=== PATIENT | male | born 1995 | race American Indian/Alaskan Native ===

== ENCOUNTER 2017-09-06 20:04 | Emergency (ER) | payer SELFPAY ==
--- NOTE | 2017-09-06 21:17 | Emergency Department Report ---
HPI - General Chief Complaint: Overdose Time Seen by Provider: 09/06/17 20:57 - HPI HPI: This is a 22-year-old after [place] male who presents to the emergency department by EMS from home with complaint of a suicide attempt by taking antifungal liquid made 4 canines. He says it was only a small amount. Currently he says he feels better but he had some nausea and vomiting earlier. He says that he was in a "bad place" earlier today and was having some depression when he took this medication in attempt to harm himself. He denies any psychiatric history. He does not have a primary care doctor. He denies any illicit drug use or alcohol abuse. No recent travel or sick contacts at home. He did not receive anything for her symptoms prior to presentation. ED Past Medical Hx - Past Medical History Additional medical history: denies - Surgical History Additional Surgical History: denies - Social History Smoking Status: Heavy Tobacco Smoker - Medications Home Medications: Home Medications Medication Instructions Recorded Confirmed Last Taken Type No Known Home Medications [No 09/06/17 09/06/17 Unknown History Reported Home Medications] ED Review of Systems ROS: Stated complaint: SUICIDAL/MH EVAL/EMESIS Other details as noted in HPI Comment: All other systems reviewed and negative Constitutional: denies: chills, fever Eyes: denies: eye pain, eye discharge, vision change ENT: denies: ear pain, throat pain Respiratory: denies: cough, shortness of breath, wheezing Cardiovascular: denies: chest pain, palpitations Gastrointestinal: nausea, vomiting Genitourinary: denies: urgency, dysuria Musculoskeletal: denies: back pain, joint swelling, arthralgia Skin: denies: rash, lesions Neurological: denies: headache, weakness, paresthesias Psychiatric: suicidal thoughts. denies: auditory hallucinations, visual hallucinations, homicidal thoughts Physical Exam - Physical Exam Vital Signs: Vital Signs 09/06/17 20:40 Temperature 98.5 F Pulse Rate 90 Blood Pressure 130/82 O2 Sat by Pulse 99 Oximetry Physical Exam: GENERAL: The patient is well-developed well-nourished. HENT: Normocephalic. Atraumatic. Patient has moist mucous membranes. EYES: Extraocular motions are intact. Pupils equal reactive to light bilaterally. NECK: Supple. Trachea is midline. CHEST/LUNGS: Clear to auscultation. There is no respiratory distress noted. HEART/CARDIOVASCULAR: Regular. There is no tachycardia. There is no gallop rub or murmur. ABDOMEN: Abdomen is soft, nontender. Patient has normal bowel sounds. There is no abdominal distention. SKIN: Skin is warm and dry. NEURO: The patient is awake, alert, and oriented. The patient is cooperative. The patient has no focal neurologic deficits. The patient has normal speech and gait. Cranial nerves II through XII grossly intact. MUSCULOSKELETAL: There is no tenderness or deformity. There is no limitation range of motion. There is no evidence of acute injury. ED Course Vital Signs 09/06/17 20:40 Temperature 98.5 F Pulse Rate 90 Blood Pressure 130/82 O2 Sat by Pulse 99 Oximetry - Consultations Consultation #1: Poison control was contacted at 8:00 PM. They suggest supportive care for the canine antifungal. They recommend the normal overdose labs, EKG and workup. 09/06/17 22:35 ED Medical Decision Making - Lab Data Result diagrams: 09/06/17 21:19 09/06/17 21:19 - EKG Data -: EKG Interpreted by Nm EKG shows normal: sinus rhythm, axis, intervals, QRS complexes, ST-T waves Rate: normal - EKG Data When compared to previous EKG there are: previous EKG unavailable Interpretation: normal EKG - Medical Decision Making This is a 22-year-old male presents after he attempted to harm himself by drinking liquids canine antifungal medication. He had some nausea and vomiting when he first came in but since then he has been calm and appropriate. However secondary to the fact that he is trying to harm himself, he has been made a 1013. We spoke to poison control recommended a 4 hour observation and supportive care. It has been over 4 hours and the patient has not shown any signs of distress. His vital signs and stable throughout his ED course. We do not yet have a urinalysis or urine drug screen but otherwise his blood lab results have been unremarkable. He appears medically cleared for psychiatric placement. - Differential Diagnosis depression, substance abuse, bipolar disorder Critical Care Time: No Critical care attestation.: If time is entered above; I have spent that time in minutes in the direct care of this critically ill patient, excluding procedure time. ED Disposition Clinical Impression: Suicide attempt Depression Qualifiers: Depression Type: unspecified Qualified Code(s): F32.9 - Major depressive disorder, single episode, unspecified Disposition: DC/TX-65 PSY HOSP/PSY UNIT Is pt being admited?: No Condition: Stable Referrals: PRIMARY CARE, [Primary Care Provider] - 3-5 Days Time of Disposition: 00:32
[2017-09-06 21:38] LABS: Basophils % (Auto) 0.3 % (0.0-1.8); Eosinophils % (Auto) 1.5 % (0.0-4.3); Hemoglobin 13.5 gm/dl (11.8-15.2); Mean Corpuscular HGB Conc 31 % (32-34); Mean Corpuscular Volume 75 fl (84-94); Platelet Count 245 K/mm3 (140-440); Red Blood Count 5.74 M/mm3 (3.65-5.03); Red Cell Distribution Width 15.1 % (13.2-15.2); White Blood Count 9.4 K/mm3 (4.5-11.0)
[2017-09-06 21:42] LABS: Mean Corpuscular Hemoglobin 24 pg (28-32)
[2017-09-06 21:55] LABS: Alanine Aminotransferase 14 units/L (7-56); Albumin 4.6 g/dL (3.9-5); Albumin/Globulin Ratio 1.7 %; Alkaline Phosphatase 65 units/L (35-129); Anion Gap 18 mmol/L; BUN/Creatinine Ratio 11; Blood Urea Nitrogen 9 mg/dL (9-20); Calcium 9.3 mg/dL (8.4-10.2); Carbon Dioxide 25 mmol/L (22-30); Chloride 103.5 mmol/L (98-107); Glucose 88 mg/dL (75-100); Potassium 3.7 mmol/L (3.6-5.0); Sodium 143 mmol/L (137-145); Total Protein 7.3 g/dL (6.3-8.2)
--- NOTE | 2017-09-08 11:00 | Consultation ---
History of Present Illness - Reason for Consult Consult date: 09/08/17 Reason for consult: Mental Health Evaluation Requesting physician: JEREMIE CURRIE - Chief Complaint Chief complaint: "I didn't try to kill myself" - History of Present Psychiatric Illness This is a 22-year-old after [place] male who presents to the emergency department by EMS from home with complaint of a suicide attempt by taking antifungal liquid made 4 canines. Today patient is calm and cooperative during the assessment. He stated that he swallowed some type of liquid that was on the kitchen table to stop a migraine headache. He stated that the container was plastic and it didn't ID the liquid inside of it, so he swallowed it. He stated having bad days because he feel "alone." He stated that he been taking care of himself since the age of 15. He stated that his father is in alf. He stated that he have been living with family members for several years. He stated that his family issues are "messed up". When asked about his prior actions before his admission, he continue to state that he wasn't trying to kill himself. He denies any prior suicide attempts. He denies sleep disturbance and a poor appetite. He admit to smoking marijuana "sometimes" and denies alcohol consumption (etoh). Medications and Allergies Allergies Allergy/AdvReac Type Severity Reaction Status Date / Time No Known Allergies Allergy Verified 09/06/17 22:27 Home Medications Medication Instructions Recorded Confirmed Last Taken Type No Known Home Medications [No 09/06/17 09/06/17 Unknown History Reported Home Medications] Past psychiatric history - Past Medical History Past Medical History: No medical history Past Surgical History: No surgical history - past Psychiatric treatment and history psychiatric treatment history: Patient stated seeing a psychiatrist as a child for ADHD. He denies a fam psy hx. - Social History Social history: lives with family, other (11th grade education) Mental Status Exam - Vital signs Last Vital Signs Temp 97.6 F 09/08/17 08:34 Pulse 70 09/08/17 08:34 Resp 20 09/08/17 08:52 BP 97/54 09/08/17 08:34 Pulse Ox 100 09/08/17 08:52 - Exam Narrative exam: MSE: Appearance: calm, cooperative Behavior: regular eye contact Speech: regular rate and tone Mood: "okay" Affect: congruent to mood Thought Process: circumstantial Thought Content: denies SI/HI's and AVH's Motor Activity: ambulatory Cognition: A/O x3 Insight: variable Judgment: variable Results Result Diagrams: 09/06/17 21:19 09/06/17 21:19 All other labs normal. Assessment and Plan Assessment and plan: Impression: Today patient is calm and cooperative during the assessment. Possible suicide attempt. Recommendation/Plan: Continue 1013. Will gather collateral information from family to help determine proper treatment.
[2017-09-09 07:26] LABS: Urine Drugs of Abuse Note Disclamer
[2017-09-09 07:34] LABS: Bilirubin,Urine NEG (Negative); Blood,Urine NEG (Negative); Ketones,Urine NEG (Negative); Leukocyte Esterase,Urine NEG (Negative); Mucus,Urine FEW /HPF; Nitrite,Urine NEG (Negative); Protein,Urine <15 mg/dL mg/dL (Negative); Urobilinogen,Urine < 2.0 mg/dL (<2.0); WBC,Urine < 1.0 /HPF (0.0-6.0)
--- NOTE | 2017-09-09 12:28 | Progress Note ---
Subjective - Reason for Consult Consult date: 09/09/17 Reason for consult: Psychiatry Follow-up - Chief Complaint Chief complaint: "I'm done some reflecting" This is a 22-year-old after Polish male who presents to the emergency department by EMS from home with complaint of a suicide attempt by taking antifungal liquid made 4 canines. Today patient is calm and cooperative during the assessment. Yesterday the patient stated that he took the liquid for a migraine headache, but stated that he was "overwhelmed" with life at the time. He stated that he feels sad throughout the day and cannot explain why. He stated that he spoke with family yesterday and those conversations went well. Per collateral from his aunt Octavia Gleason at [phone], she stated that this would be the first time the patient tried to hurt himself. She denies any mental health issue other than he being treated for ADHD as a teenager. The patient denies SI/HI's and AVH's. Mental Status Exam - Vital signs Last Vital Signs Temp 98.9 F 09/08/17 21:00 Pulse 54 L 09/08/17 21:00 Resp 18 09/08/17 21:00 BP 107/69 09/08/17 21:00 Pulse Ox 98 09/08/17 21:00 - Exam Narrative exam: MSE: Appearance: calm, cooperative Behavior: regular eye contact Speech: regular rate and tone Mood: "better" Affect: congruent to mood Thought Process: circumstantial Thought Content: denies SI/HI's and AVH's Motor Activity: ambulatory Cognition: A/O x3 Insight: fair Judgment: fair Assessment and Plan Impression: MDD. Today patient is calm and cooperative during the assessment. Recommendation/Plan: Evaluate 1013 in 24 hours to determine proper dispo. Patient prefer therapy at this time other than taking medication for depression. Risk/Benefit discussed with patient reference antidepressants. Discussed generalized coping skills with patient.
--- NOTE | 2017-09-10 07:22 | Progress Note ---
Subjective - Reason for Consult Consult date: 09/10/17 Reason for consult: Psychiatry Follow-up - Chief Complaint Chief complaint: "Mirella" This is a 22-year-old after British male who presents to the emergency department by EMS from home with complaint of a suicide attempt by taking antifungal liquid made 4 canines. Today patient is calm and cooperative during the assessment. He stated that he is looking forward to be discharged. He stated that he must pay more attention to what he drink (foreign substances). He is adamant he did not try to kill himself. He stated that he would like a referral to see a therapist once discharged. He denies SI/HI's and AVH's. He denies being depressed. Mental Status Exam - Vital signs Last Vital Signs Temp 98.0 F 09/09/17 21:15 Pulse 57 L 09/09/17 21:15 Resp 16 09/09/17 21:15 BP 102/67 09/09/17 21:15 Pulse Ox 100 09/09/17 09:15 - Exam Narrative exam: MSE: Appearance: calm, cooperative Behavior: regular eye contact Speech: regular rate and tone Mood: "good" Affect: congruent to mood Thought Process: linear Thought Content: denies SI/HI's and AVH's Motor Activity: ambulatory Cognition: A/O x3 Insight: appropriate Judgment: appropriate Assessment and Plan Impression: MDD. Today patient is calm and cooperative during the assessment. Unintentional overdose. Patient is no threat to self. I. This screening and assessment is based on information collected from the following sources: II. SUICIDE RISK SCREENING (within last 30 days): A.) Suicidal thoughts/behaviors: None SUICIDE RISK ASSESSMENT III. FACTORS THAT INCREASE RISK: A.) Demographic and Substance Use Factors: None B.) Current/Recent Factors (within past 3 months): Psychosocial/Environmental Factors: None Physical Illness: Previous None Cognitive/Psychological Factors: None C.) Historical Factors: None D.) Diagnostic/Symptom/Treatment Factors: None E.) Acute Risk Factor Severity (DESC; MILD/MOD/SEVERE): Mild Other factors for this individual that increase risk: IV. FACTORS THAT DECREASE RISK: Resilience/Protective Factors: Patient want to see a therapist to once discharged Other factors for this individual that decrease risk: Patient denies a desire to harm self V. Clinician's Formulation of Risk and Determination of level of Care: This is a 22-year-old AA male who was experiencing an migraine headache and drink a antifungal medication for dogs. His action was suspicious, so he was put on a 1013. After gathering collateral information from family and talking with the patient this was an unintentional overdose. Since being hospitalized, the patient has consistently denied the desire to harm himself. Additionally, he has become insightful about how to better address migraine headaches. Patient is not impaired by substance. He is able to take care of his ADLs and is not at imminent risk of harm to self or others. Consequently, it is the opinion of the treatment team that the patient is at low risk of suicide and does not meet criteria to continue an involuntary psychiatric hold. Estimation of Imminent Risk: Low due to the above explanation. Determination of Level of Care based on Suicide Risk: Outpatient follow-up. Narrative description of clinical reasoning. (This must be completed on all patients): . Plan and Interventions based on Suicide Risk: This patient will likely be stepped down to an outpatient mental health center in the community upon discharge and follow-up within 7 days of his discharge from the hospital. VII. Discharge/After Hours Support Plan: Patient can return back to the ER, call 911 or crisis line if symptoms of depression, anxiety, suicidality return. Recommendation/Plan: Rescind 1013. Patient prefer therapy at this time other than taking medication for depression. Risk/Benefit discussed with patient reference antidepressants. Discussed generalized coping skills with patient. Safety Contract completed with patient. Patient given outpatient psy services for [facility].
[2017-09-10 14:37] VITALS: BP 118/66
== END 2017-09-10 14:36 | disposition home or self-care (01) ==
LOC: EEVIPCON 20:04 → ED 20:04
DX: T49.0X2A Poisoning by local antifungal, anti-infective and anti-inflammatory drugs, intentional self-harm, initial encounter (principal); F32.9 Major depressive disorder, single episode, unspecified; F17.200 Nicotine dependence, unspecified, uncomplicated
CPT/HCPCS: 36415; 80053; 80307; 81001; 85025; 93005; 93010; 99284; G0480; 80320